=== PATIENT | male | born 1970 | race Caucasian/White ===

== ENCOUNTER 2021-02-23 15:06 | Emergency (ER) | payer SELFPAY ==
--- NOTE | ~2021-02-23 | XR_ITS ---
EXAMINATION: XR CHEST CLINICAL INFORMATION: Rib pain. COMPARISON: None TECHNIQUE: Frontal view of the chest was obtained. FINDINGS: No significant abnormality is noted involving the heart, lungs, mediastinum, bony thorax or soft tissues. XR/XR chest 1V IMPRESSION: Unremarkable examination. Free of pain persist and clinically indicated, consider further evaluation with a dedicated rib series.
--- NOTE | ~2021-02-23 | CT_ITS ---
EXAMINATION: CT ABDOMEN AND PELVIS WITH CONTRAST CLINICAL INFORMATION: Abdominal pain COMPARISON: None. TECHNIQUE: Multidetector volumetric imaging was performed from the superior aspect of the liver through the pubic symphysis following administration of 85 cc of Omnipaque intravenous contrast Sagittal and coronal reformatted images were obtained on the technologist workstation.. This CT examination was performed using dose optimization techniques as appropriate, variously including the following: *Automated exposure control *Adjustment of mA and/or kV according to patient size (this includes techniques or standardized protocols for targeted exams where dose is matched to indication/reason for exam; i.e. extremities or head) *Use of iterative reconstruction technique DLP: 402 mGy-cm FINDINGS: LUNG BASES: Bibasilar dependent markings more suggestive of atelectasis. Atypical infectious etiology would be considered less likely. LIVER, GALLBLADDER, AND BILIARY TREE: The liver is normal in size, shape, and attenuation. No focal hepatic lesion or biliary ductal dilatation is present. The gallbladder is contracted but unremarkable with no evidence of radiopaque gallstones, gallbladder wall thickening, or obvious pericholecystic inflammatory changes. PANCREAS: Unremarkable. SPLEEN: Unremarkable. ADRENAL GLANDS: Unremarkable. KIDNEYS AND URETERS: The kidneys are normal in size, shape, and attenuation. No hydronephrosis, hydroureter, or calculi seen. No perinephric stranding. BLADDER: Bladder is contracted which likely explains the concentric wall thickening. Cystitis could have this appearance however and should be clinically correlated GASTROINTESTINAL TRACT: Few scattered colonic diverticula are noted but there is no colonic wall thickening or pericolonic inflammatory change to suggest diverticulitis. Normal-appearing appendix. Visualized small bowel unremarkable ABDOMINAL WALL: No significant hernia is appreciated. LYMPHOVASCULAR STRUCTURES: No lymphadenopathy. The aorta is unremarkable. PELVIC VISCERA: Unremarkable. OSSEOUS STRUCTURES: Unremarkable. CT/CT abdomen pelvis w con IMPRESSION: Increased basilar lung markings more likely due to atelectasis. Atypical infectious etiology would be considered less likely. Although decompressed there is concentric bladder wall thickening. This may be related to the degree of decompression although cystitis could have this appearance and should be clinically correlated.
[2021-02-23 16:07] VITALS: BP 130/67; PULSE 89; RESP 16; TEMP 36.8; O2SAT 98; BMI 22.8
--- NOTE | 2021-02-23 16:15 | ECG_ITS ---
Test Reason : CHEST PAIN Blood Pressure : / mmHG Vent. Rate : 079 BPM Atrial Rate : 079 BPM P-R Int : 138 ms QRS Dur : 072 ms QT Int : 366 ms P-R-T Axes : 053 053 054 degrees QTc Int : 419 ms Normal sinus rhythm Normal ECG No previous ECGs available Referred By: Generic ED Physician Electronically Signed By:DAMIÁN WILLIAM
--- NOTE | 2021-02-23 17:20 | ED.GENADULT ---
HPI - General Adult General Chief complaint: General Medical <ANUPAM ClayP-BC - Last Filed: 02/23/21 19:38> Stated complaint: back pain,abd pain <GINNY Clay-BC - Last Filed: 02/23/21 19:38> Time Seen by Provider: 02/23/21 17:20 <Anita Larson ASTRONOMY DEPARTMENT CHAIR-BC - Last Filed: 02/23/21 19:38> Source: patient <GINNY Clay-BC - Last Filed: 02/23/21 19:38> Mode of arrival: ambulatory <ANUPAM ClayP-BC - Last Filed: 02/23/21 19:38> Limitations: no limitations <ANUPAM ClayP-BC - Last Filed: 02/23/21 19:38> History of Present Illness HPI narrative: Patient is here today for complaints of abdominal pain that started about 3 days ago. Patient reports that is not related to any food. Patient reports that he does picks up heavy boxes at work. Patient denies any nausea, vomiting, diarrhea, constipation, dysphagia or odynophagia. Patient denies dyspepsia or epigastric pain. Reports that he is moving his bowels normally. Patient reports that when he lays down the pain radiates to his left chest area under his ribs. EKG was done in triage in negative for any acute processes. Patient denies any other symptoms. <ANUPAM ClayP-BC - Last Filed: 02/23/21 19:38> Onset (ago): day(s) (3) <Anita Larson ASTRONOMY DEPARTMENT CHAIR-BC - Last Filed: 02/23/21 19:38> Location: abdomen <Anita Larson ASTRONOMY DEPARTMENT CHAIR-BC - Last Filed: 02/23/21 19:38> Severity: moderate <Anita Platasalomón ASTRONOMY DEPARTMENT CHAIR-BC - Last Filed: 02/23/21 19:38> Severity scale (1-10): 7 <Anita Platasalomón ASTRONOMY DEPARTMENT CHAIR-BC - Last Filed: 02/23/21 19:38> Quality: sharp <Anita Platasalomón ASTRONOMY DEPARTMENT CHAIR-BC - Last Filed: 02/23/21 19:38> Pain Consistency: intermittent <Anita Larson KIRBY - Last Filed: 02/23/21 19:38> Relieving factors: none <Anita Platasalomón KIRBY - Last Filed: 02/23/21 19:38> Related Data Home medications: Previous Rx's Medication Instructions Recorded ketorolac 10 mg tablet 10 mg PO Q6H 5 Days #20 tab 02/23/21 <Anita Plaatsalomón KIRBY - Last Filed: 02/23/21 19:38> Allergies/adverse reactions: Allergies Allergy/AdvReac Type Severity Reaction Status Date / Time No Known Allergies Allergy Verified 02/23/21 16:13 <Anita Platasalomón KIRBY - Last Filed: 02/23/21 19:38> Review of Systems Review of Systems: Constitutional : No Weight loss, No Fever, No Chills, No Night Sweats, No Fatigue, No Malaise ENT/Mouth : No Hearing loss, No Ear Pain, No Nasal Congestion, No Sinus Pain, No Hoarseness, No sore throat, No Rhinorrhea, No Swallowing Difficulty Eyes: No Eye Pain, No Swelling, No Redness, No Foreign Body, No Discharge, No Vision Changes Cardiovascular : No Chest Pain, No SOB, No Dyspnea on Exertion, No Orthopnea, No Edema, No Palpitations Respiratory : No Cough, No Sputum, No Wheezing, No Smoke Exposure, No Dyspnea Gastrointestinal : No Nausea, No Vomiting, No Diarrhea, No Constipation, abdominal Pain, No Hematochezia, No Melena Genitourinary : no irregular bleeding, No Dysuria, No Urinary Frequency, No Hematuria, No Urinary Incontinence, No Urgency, No Flank Pain, No Urinary Flow Changes, No Hesitancy Musculoskeletal : No joint pain, No Myalgias, No Joint Swelling Skin : No Skin Lesions, No rash Neuro : No Weakness, No Numbness, No Paresthesias, No Loss of Consciousness, No Dizziness, No Headache Psych : No Anxiety/Panic, No Depression, No SI/HI/AH/VH, No Social Issues, Heme/Lymph: No Bruising, No Bleeding,No Lymphadenopathy Endocrine : No Polyuria, No Polydipsia, No Temperature Intolerance <Anita Platasalomón KIRBY - Last Filed: 02/23/21 19:38> Yes all other systems are reviewed and are negative <Anita Platasalomón ASTRONOMY DEPARTMENT CHAIR-BC - Last Filed: 02/23/21 19:38> PMFSH Social History Social History: Social History Advance Directives: No Advance Directives Information Provided: Yes <Anita Platasalomón ASTRONOMY DEPARTMENT CHAIR-BC - Last Filed: 02/23/21 19:38> Physical Exam Vital Signs: Vital Signs: Last Vital Signs Temp 98.4 F 02/23/21 20:05 Pulse 76 02/23/21 20:05 Resp 16 02/23/21 20:05 BP 127/69 02/23/21 20:05 Pulse Ox 96 02/23/21 20:05 Body Mass Index 22.8 <Anita Platasalomón ASTRONOMY DEPARTMENT CHAIR-BC - Last Filed: 02/23/21 19:38> Vital Signs: Last Vital Signs Temp 98.4 F 02/23/21 20:05 Pulse 76 02/23/21 20:05 Resp 16 02/23/21 20:05 BP 127/69 02/23/21 20:05 Pulse Ox 96 02/23/21 20:05 Body Mass Index 22.8 <SELENA Nesbitt - Last Filed: 02/23/21 20:50> Const: General: healthy appearing, no acute distress and well developed <Anitareginald Larson ASTRONOMY DEPARTMENT CHAIR-BC - Last Filed: 02/23/21 19:38> Nutritional Appearance: well nourished <Anitareginald Larson ASTRONOMY DEPARTMENT CHAIR-BC - Last Filed: 02/23/21 19:38> Orientation/consciousness: patient oriented x3 <Anitareginald Larson ASTRONOMY DEPARTMENT CHAIR-BC - Last Filed: 02/23/21 19:38> Neck: Neck: Yes normal visual inspection, Yes full ROM and Yes trachea midline <Anitareginald Larson ASTRONOMY DEPARTMENT CHAIR-BC - Last Filed: 02/23/21 19:38> Thyroid: Thyroid normal <Anitareginald Larson ASTRONOMY DEPARTMENT CHAIR-BC - Last Filed: 02/23/21 19:38> Resp: Auscultation: clear to auscultation bilaterally <Anitareginald Larson ASTRONOMY DEPARTMENT CHAIR-BC - Last Filed: 02/23/21 19:38> Cardio: Rate: regular rate <KIRBY Clay - Last Filed: 02/23/21 19:38> Rhythm: regular rhythm <KIRBY Clay - Last Filed: 02/23/21 19:38> GI: Inspection: Yes normal to inspection and No distended <KIRBY Clay - Last Filed: 02/23/21 19:38> Palpation (GI): Soft to palpation, not firm, Tenderness to palpation present (GI) (Left upper quadrant) in the LUQ and No hepatosplenomegaly present <KIRBY Clay - Last Filed: 02/23/21 19:38> Auscultation: normal bowel sounds <KIRBY Clay - Last Filed: 02/23/21 19:38> Skin: General skin exam: elasticity normal, turgor normal and dry skin <KIRBY Clay - Last Filed: 02/23/21 19:38> Neuro: General: patient oriented x3 <KIRBY Clay - Last Filed: 02/23/21 19:38> Course Course Course Narrative: 50-year-old male here today for abdominal discomfort for the last 3 days. Denies nausea, vomiting, diarrhea, constipation, epigastric pain, acid reflux, dysphagia, dyspepsia, odynophagia. Tenderness over left and mid upper quadrant. Chest x-ray normal. Patient reports that when he lays down the pain radiates to his left chest underneath his ribs. He reports that he is moving his bowels normally. Denies postprandial bloating. Will order CT with IV contrast, CBC, CMP. <KIRBY Clay - Last Filed: 02/23/21 19:38> 50-year-old male here today for abdominal discomfort for the last 3 days. Denies nausea, vomiting, diarrhea, constipation, epigastric pain, acid reflux, dysphagia, dyspepsia, odynophagia. Tenderness over left and mid upper quadrant. Chest x-ray normal. Patient reports that when he lays down the pain radiates to his left chest underneath his ribs. He reports that he is moving his bowels normally. Denies postprandial bloating. Will order CT with IV contrast, CBC, CMP. CBC and CMP are within normal limits, urine is negative. COVID is negative. Chest x-ray shows no acute pathology, no bony abnormality. CT with contrast abdomen and pelvis possible atelectasis than bladder wall thickening, which do not correlate with patient's symptoms CT: Increased basilar lung markings more likely due to atelectasis. Atypical infectious etiology would be considered less likely. ? Although decompressed there is concentric bladder wall thickening. This may be related to the degree of decompression although cystitis could have this appearance and should be clinically correlated. Send patient home on ketorolac. Gave return precautions <SELENA Nesbitt - Last Filed: 02/23/21 20:50> Reevaluation(s) Reevaluation #1: Will medication him with Toradol and give him fluids. Awaiting lab results so we can go to CT scan. COVID negative <KIRBY Clay - Last Filed: 02/23/21 19:38> Reevaluation #2: Report given to Danni WALTERS <KIRBY Clay - Last Filed: 02/23/21 19:38> Medical Decision Making Lab Data Result diagrams: : 02/23/21 18:01 02/23/21 18:55 <KIRBY Clay - Last Filed: 02/23/21 19:38> Labs: Lab Results 02/23/21 02/23/21 02/23/21 Range/Units 18:01 18:14 18:45 WBC 11.1 H (4.8-10.8) X10*3/uL RBC 4.53 L (4.60-5.80) X10*6/uL Hgb 14.9 (14.0-18.0) g/dl Hct 42.6 (42-52) % MCV 94.0 (80-98) fL MCH 32.9 (27.0-33.0) pg MCHC 35.0 (31.0-36.0) g/dl RDW 11.8 (11.0-16.0) % Plt Count 397 (160-400) X10*3/uL MPV 9.7 (9.4-12.4) fL Immature Gran % (Auto) 0.3 (0.0-0.4) % Neut % (Auto) 73.6 H (45-73) % Lymph % (Auto) 15.8 L (20-40) % [place] % (Auto) 9.5 (2-11) % Eos % (Auto) 0.4 (0-4) % Baso % (Auto) 0.4 (0-2) % Lymph # (Auto) 1.8 (1.2-4.9) X10*3/uL [place] # (Auto) 1.1 (0.1-1.2) X10*3/uL Eos # (Auto) 0.0 (0.0-0.4) X10*3/uL Baso # (Auto) 0.0 (0.0-0.2) X10*3/uL Abs Immat Gran (auto) 0.03 (0.00-0.03) X10*3/uL Absolute Neuts (auto) 8.2 (2.0-8.3) X10*3/uL Absolute Nucleated RBC 0.000 (0.0-0.012) X10*3/uL Nucleated RBC % (auto) 0.0 (0.0-0.2) /100WBC Sodium (135-145) mmol/L Potassium (3.3-5.1) mmol/L Chloride (96-108) mmol/L Carbon Dioxide (22-29) mmol/L Anion Gap (12-20) BUN (9-16) mg/dL Creatinine (0.5-1.4) mg/dL Estim Creat Clear Calc Estimated GFR Random Glucose (60-115) mg/dL Calcium (8.4-10.2) mg/dL Total Bilirubin (0.0-1.0) mg/dL AST (5-37) U/L ALT (0-40) U/L Alkaline Phosphatase (39-117) U/L Total Protein (6.5-8.0) g/dL Albumin (3.5-5.0) g/dL Urine Color STRAW Urine Appearance CLEAR Urine pH 6.0 (5.0-8.0) Ur Specific [place] 1.010 (1.005-1.025) Urine Protein NEG (NEG-TRACE) MG/DL Urine Glucose (UA) NEG (NEG) MG/DL Urine Ketones NEG (NEG) MG/DL Urine Blood TRACE (NEG) Urine Nitrite NEG (NEG) Ur Leukocyte Esterase NEG (NEG) Urine RBC 0-2 (0) /HPF Urine WBC 0-2 (0-4) /HPF Ur Squamous Epith Cells TRACE /LPF Urine Bacteria NONE /LPF COVID-19 (BUD) Negative (Negative) COVID-19 Clin Com See Note 02/23/21 Range/Units 18:55 WBC (4.8-10.8) X10*3/uL RBC (4.60-5.80) X10*6/uL Hgb (14.0-18.0) g/dl Hct (42-52) % MCV (80-98) fL MCH (27.0-33.0) pg MCHC (31.0-36.0) g/dl RDW (11.0-16.0) % Plt Count (160-400) X10*3/uL MPV (9.4-12.4) fL Immature Gran % (Auto) (0.0-0.4) % Neut % (Auto) (45-73) % Lymph % (Auto) (20-40) % [place] % (Auto) (2-11) % Eos % (Auto) (0-4) % Baso % (Auto) (0-2) % Lymph # (Auto) (1.2-4.9) X10*3/uL [place] # (Auto) (0.1-1.2) X10*3/uL Eos # (Auto) (0.0-0.4) X10*3/uL Baso # (Auto) (0.0-0.2) X10*3/uL Abs Immat Gran (auto) (0.00-0.03) X10*3/uL Absolute Neuts (auto) (2.0-8.3) X10*3/uL Absolute Nucleated RBC (0.0-0.012) X10*3/uL Nucleated RBC % (auto) (0.0-0.2) /100WBC Sodium 140 (135-145) mmol/L Potassium 4.0 (3.3-5.1) mmol/L Chloride 101 (96-108) mmol/L Carbon Dioxide 30 H (22-29) mmol/L Anion Gap 13 (12-20) BUN 7 L (9-16) mg/dL Creatinine 0.80 (0.5-1.4) mg/dL Estim Creat Clear Calc 111.0 Estimated GFR > 60 Random Glucose 114 (60-115) mg/dL Calcium 9.2 (8.4-10.2) mg/dL Total Bilirubin 1.0 (0.0-1.0) mg/dL AST 16 (5-37) U/L ALT 18 (0-40) U/L Alkaline Phosphatase 113 (39-117) U/L Total Protein 6.8 (6.5-8.0) g/dL Albumin 3.9 (3.5-5.0) g/dL Urine Color Urine Appearance Urine pH (5.0-8.0) Ur Specific [place] (1.005-1.025) Urine Protein (NEG-TRACE) MG/DL Urine Glucose (UA) (NEG) MG/DL Urine Ketones (NEG) MG/DL Urine Blood (NEG) Urine Nitrite (NEG) Ur Leukocyte Esterase (NEG) Urine RBC (0) /HPF Urine WBC (0-4) /HPF Ur Squamous Epith Cells /LPF Urine Bacteria /LPF COVID-19 (BUD) (Negative) COVID-19 Clin Com <Anita Larson, ASTRONOMY DEPARTMENT CHAIR-BC - Last Filed: 02/23/21 19:38> Lab Results 02/23/21 02/23/21 02/23/21 Range/Units 18:01 18:14 18:45 WBC 11.1 H (4.8-10.8) X10*3/uL RBC 4.53 L (4.60-5.80) X10*6/uL Hgb 14.9 (14.0-18.0) g/dl Hct 42.6 (42-52) % MCV 94.0 (80-98) fL MCH 32.9 (27.0-33.0) pg MCHC 35.0 (31.0-36.0) g/dl RDW 11.8 (11.0-16.0) % Plt Count 397 (160-400) X10*3/uL MPV 9.7 (9.4-12.4) fL Immature Gran % (Auto) 0.3 (0.0-0.4) % Neut % (Auto) 73.6 H (45-73) % Lymph % (Auto) 15.8 L (20-40) % [place] % (Auto) 9.5 (2-11) % Eos % (Auto) 0.4 (0-4) % Baso % (Auto) 0.4 (0-2) % Lymph # (Auto) 1.8 (1.2-4.9) X10*3/uL [place] # (Auto) 1.1 (0.1-1.2) X10*3/uL Eos # (Auto) 0.0 (0.0-0.4) X10*3/uL Baso # (Auto) 0.0 (0.0-0.2) X10*3/uL Abs Immat Gran (auto) 0.03 (0.00-0.03) X10*3/uL Absolute Neuts (auto) 8.2 (2.0-8.3) X10*3/uL Absolute Nucleated RBC 0.000 (0.0-0.012) X10*3/uL Nucleated RBC % (auto) 0.0 (0.0-0.2) /100WBC Sodium (135-145) mmol/L Potassium (3.3-5.1) mmol/L Chloride (96-108) mmol/L Carbon Dioxide (22-29) mmol/L Anion Gap (12-20) BUN (9-16) mg/dL Creatinine (0.5-1.4) mg/dL Estim Creat Clear Calc Estimated GFR Random Glucose (60-115) mg/dL Calcium (8.4-10.2) mg/dL Total Bilirubin (0.0-1.0) mg/dL AST (5-37) U/L ALT (0-40) U/L Alkaline Phosphatase (39-117) U/L Total Protein (6.5-8.0) g/dL Albumin (3.5-5.0) g/dL Urine Color STRAW Urine Appearance CLEAR Urine pH 6.0 (5.0-8.0) Ur Specific [place] 1.010 (1.005-1.025) Urine Protein NEG (NEG-TRACE) MG/DL Urine Glucose (UA) NEG (NEG) MG/DL Urine Ketones NEG (NEG) MG/DL Urine Blood TRACE (NEG) Urine Nitrite NEG (NEG) Ur Leukocyte Esterase NEG (NEG) Urine RBC 0-2 (0) /HPF Urine WBC 0-2 (0-4) /HPF Ur Squamous Epith Cells TRACE /LPF Urine Bacteria NONE /LPF COVID-19 (BUD) Negative (Negative) COVID-19 Clin Com See Note 02/23/21 Range/Units 18:55 WBC (4.8-10.8) X10*3/uL RBC (4.60-5.80) X10*6/uL Hgb (14.0-18.0) g/dl Hct (42-52) % MCV (80-98) fL MCH (27.0-33.0) pg MCHC (31.0-36.0) g/dl RDW (11.0-16.0) % Plt Count (160-400) X10*3/uL MPV (9.4-12.4) fL Immature Gran % (Auto) (0.0-0.4) % Neut % (Auto) (45-73) % Lymph % (Auto) (20-40) % [place] % (Auto) (2-11) % Eos % (Auto) (0-4) % Baso % (Auto) (0-2) % Lymph # (Auto) (1.2-4.9) X10*3/uL [place] # (Auto) (0.1-1.2) X10*3/uL Eos # (Auto) (0.0-0.4) X10*3/uL Baso # (Auto) (0.0-0.2) X10*3/uL Abs Immat Gran (auto) (0.00-0.03) X10*3/uL Absolute Neuts (auto) (2.0-8.3) X10*3/uL Absolute Nucleated RBC (0.0-0.012) X10*3/uL Nucleated RBC % (auto) (0.0-0.2) /100WBC Sodium 140 (135-145) mmol/L Potassium 4.0 (3.3-5.1) mmol/L Chloride 101 (96-108) mmol/L Carbon Dioxide 30 H (22-29) mmol/L Anion Gap 13 (12-20) BUN 7 L (9-16) mg/dL Creatinine 0.80 (0.5-1.4) mg/dL Estim Creat Clear Calc 111.0 Estimated GFR > 60 Random Glucose 114 (60-115) mg/dL Calcium 9.2 (8.4-10.2) mg/dL Total Bilirubin 1.0 (0.0-1.0) mg/dL AST 16 (5-37) U/L ALT 18 (0-40) U/L Alkaline Phosphatase 113 (39-117) U/L Total Protein 6.8 (6.5-8.0) g/dL Albumin 3.9 (3.5-5.0) g/dL Urine Color Urine Appearance Urine pH (5.0-8.0) Ur Specific [place] (1.005-1.025) Urine Protein (NEG-TRACE) MG/DL Urine Glucose (UA) (NEG) MG/DL Urine Ketones (NEG) MG/DL Urine Blood (NEG) Urine Nitrite (NEG) Ur Leukocyte Esterase (NEG) Urine RBC (0) /HPF Urine WBC (0-4) /HPF Ur Squamous Epith Cells /LPF Urine Bacteria /LPF COVID-19 (BUD) (Negative) COVID-19 Clin Com <SELENA Nesbitt - Last Filed: 02/23/21 20:50> Discharge Plan Discharge Clinical Impression: Strain of abdominal wall Qualifiers: Encounter type: initial encounter Qualified Code(s): S39.011A - Strain of muscle, fascia and tendon of abdomen, initial encounter <KIRBY Clay - Last Filed: 02/23/21 19:38> Patient Disposition: Home, Self-Care <KIRBY Clay - Last Filed: 02/23/21 19:38> Instructions: Core Strengthening Exercises (ED) <KIRBY Clay - Last Filed: 02/23/21 19:38> Additional Instructions: Please fill your prescription for ketorolac intake the next 5 days. Please drink plenty of water with this medication. Please do not take any ibuprofen containing substances, no Motrin, ibuprofen, Aleve, or Excedrin, when you are on this medication. Please rest and return to work on Saturday. Please return to emergency room if you have any new or concerning symptoms. <KIRBY Clay - Last Filed: 02/23/21 19:38> Prescriptions: New ketorolac 10 mg tablet 10 mg PO Q6H 5 Days Qty: 20 RF: 0 <KIRBY Clay - Last Filed: 02/23/21 19:38> Stand Alone Forms: Work/School Release <KIRBY Clay - Last Filed: 02/23/21 19:38>
[2021-02-23 18:07] LABS: MANUAL DIFF FLAG NO
[2021-02-23 18:09] LABS: Basophils Percent Auto 0.4 % (0-2); Eosinophils Percent Auto 0.4 % (0-4); Hematocrit 42.6 % (42-52); Hemoglobin 14.9 g/dl (14.0-18.0); Imm Gran Abs Auto 0.03 X10*3/uL (0.00-0.03); Imm Gran Pct Auto 0.3 % (0.0-0.4); Lymphocytes Absolute Auto 1.8 X10*3/uL (1.2-4.9); Lymphocytes Percent Auto 15.8 % (20-40); Mean Corpuscular Hemoglobin 32.9 pg (27.0-33.0); Mean Platelet Volume 9.7 fL (9.4-12.4); Monocytes Absolute Auto 1.1 X10*3/uL (0.1-1.2); Monocytes Percent Auto 9.5 % (2-11); Neutrophils Absolute Auto 8.2 X10*3/uL (2.0-8.3); Neutrophils Percent Auto 73.6 % (45-73); Platelet Count 397 X10*3/uL (160-400); Red Blood Count 4.53 X10*6/uL (4.60-5.80); Red Cell Distribution Width 11.8 % (11.0-16.0); White Blood Count 11.1 X10*3/uL (4.8-10.8)
[2021-02-23 18:28] LABS: Glucose Urine UA NEG (NEG); Leukocyte Esterase Urine NEG (NEG); Nitrite Urine NEG (NEG); UACC Culture Trigger NO; Urine Blood TRACE (NEG); Urine Ketones NEG (NEG); Urine Protein NEG (NEG-TRACE)
[2021-02-23 18:29] LABS: Appearance Urine CLEAR; Color Urine STRAW
[2021-02-23 18:41] LABS: RBC Urine 0-2 /HPF (0); Squamous Epithelial Cell Urine TRACE /LPF; WBC Urine 0-2 /HPF (0-4)
[2021-02-23 19:05] LABS: COVID-19 Test Negative (Negative)
[2021-02-23] MEDS: 0.9 % Sodium Chloride 1,000 ML 999 ML IV (19:13)
[2021-02-23] MEDS: Ketorolac Tromethamine 15 MG/ML VIAL 30 MG IVPUSH (19:13)
[2021-02-23 19:38] LABS: Alanine Aminotransferase 18 U/L (0-40); Albumin Level 3.9 g/dL (3.5-5.0); Alkaline Phosphatase 113 U/L (39-117); Anion Gap 13 (12-20); Aspartate Amino Transferase 16 U/L (5-37); Blood Urea Nitrogen 7 mg/dL (9-16); Calcium 9.2 mg/dL (8.4-10.2); Carbon Dioxide 30 mmol/L (22-29); Chloride 101 mmol/L (96-108); Estimated Glomerular Filt Rate > 60; Glucose Random 114 mg/dL (60-115); Sodium 140 mmol/L (135-145); Total Protein 6.8 g/dL (6.5-8.0)
[2021-02-23] MEDS: iohexoL 350 MG/ML 100 ML INFUS..BTL IV (19:58)
[2021-02-23 20:05] VITALS: BP 127/69; PULSE 76; RESP 16; TEMP 36.9; O2SAT 96
== END 2021-02-23 21:06 | disposition home or self-care (01) ==
PROVIDERS: Nurse Practitioner Family; Emergency Provider Emergency Medicine
DX: S39.011A Strain of muscle, fascia and tendon of abdomen, initial encounter (principal); X50.0XXA Overexertion from strenuous movement or load, initial encounter; Y93.89 Activity, other specified; Y92.9 Unspecified place or not applicable; Y99.0 Civilian activity done for income or pay; Z20.822 Contact with and (suspected) exposure to COVID-19
CPT/HCPCS: 36415; 71045; 74177; 80053; 81001; 85025; 87635; 93005; 96361; 96374; 99284; J1885; Q9967

== ENCOUNTER 2021-11-28 12:49 | Emergency (ER) | payer SELFPAY ==
[2021-11-28 14:09] VITALS: BP 146/79; PULSE 75; RESP 18; TEMP 36.6; O2SAT 100; BMI 23.0
[2021-11-28 17:16] LABS: MANUAL DIFF FLAG NO
[2021-11-28 17:21] LABS: Basophils Percent Auto 0.9 % (0-2); Eosinophils Absolute Auto 0.1 X10*3/uL (0.0-0.4); Eosinophils Percent Auto 2.2 % (0-4); Hematocrit 44.6 % (42.0-52.0); Hemoglobin 15.5 g/dl (14.0-18.0); Imm Gran Abs Auto 0.01 X10*3/uL (0.00-0.03); Imm Gran Pct Auto 0.2 % (0.0-0.4); Lymphocytes Absolute Auto 1.5 X10*3/uL (1.2-4.9); Lymphocytes Percent Auto 31.5 % (20-40); Mean Corpuscular HGB Conc 34.8 g/dl (31.0-36.0); Mean Corpuscular Hemoglobin 32.3 pg (27.0-33.0); Mean Corpuscular Volume 92.9 fL (80.0-98.0); Mean Platelet Volume 9.3 fL (9.4-12.4); Monocytes Absolute Auto 0.3 X10*3/uL (0.1-1.2); Monocytes Percent Auto 7.2 % (2-11); Neutrophils Absolute Auto 2.7 x10*3/uL (2.0-8.3); Platelet Count 328 X10*3/uL (160-400); Red Cell Distribution Width 12.1 % (11.0-16.0); White Blood Count 4.6 X10*3/uL (4.8-10.8)
[2021-11-28 17:22] LABS: Appearance Urine CLEAR; Color Urine YELLOW; Glucose Urine UA NEG (NEG); Leukocyte Esterase Urine NEG (NEG); Nitrite Urine NEG (NEG); Specific Gravity - Urine >= 1.030 (1.005-1.025); UACC Culture Trigger NO; Urine Blood 1+ (NEG); Urine Ketones NEG (NEG); Urine Protein TRACE MG/DL (NEG-TRACE)
[2021-11-28 17:37] LABS: Mucus Urine TRACE /LPF; RBC Urine 0-2 /HPF (0); Squamous Epithelial Cell Urine TRACE /LPF; WBC Urine 0-2 /HPF (0-4)
[2021-11-28 17:55] LABS: Alanine Aminotransferase 19 U/L (0-40); Albumin Level 4.4 g/dL (3.5-5.0); Alkaline Phosphatase 95 U/L (39-117); Anion Gap 14 (12-20); Aspartate Amino Transferase 28 U/L (5-37); Bilirubin Total 0.6 mg/dL (0.0-1.0); Blood Urea Nitrogen 6 mg/dL (9-16); Calcium 9.3 mg/dL (8.4-10.2); Carbon Dioxide 28 mmol/L (22-29); Chloride 105 mmol/L (96-108); Creatinine Clr Calc Pharmacy 105.2; Estimated Glomerular Filt Rate > 60; Glucose Random 115 mg/dL (60-115); Potassium 3.9 mmol/L (3.3-5.1); Sodium 143 mmol/L (135-145); Total Protein 7.5 g/dL (6.5-8.0)
[2021-11-28 20:10] VITALS: BP 123/73; PULSE 65; TEMP 36.8; O2SAT 99
--- NOTE | 2021-11-28 20:48 | ED_ITS ---
HPI - Male Genitourinary General Chief complaint: Urogenital-Male Stated complaint: blood in urine Time Seen by Provider: 11/28/21 20:12 Source: patient, family and spanish medical interpreter Mode of arrival: ambulatory Limitations: language barrier History of Present Illness HPI Narrative: This is a 51-year-old male who has previously healthy here with intermittent hematuria for 3 months. Patient tells me that he has had 3 episodes of this. Normally it resolved without intervention. Yesterday he noticed some increase in episodes with some lower suprapubic pressure which prompted his visit today. He denies any testicular pain, flank pain, nausea, vomiting, fevers. No urinary urgency, frequency or dysuria. He has clots at times. Related Data Previous Rx's Medication Instructions Recorded ketorolac 10 mg tablet 10 mg PO Q6H 5 Days #20 tab 02/23/21 levofloxacin 750 mg tablet 750 mg PO DAILY 7 Days #7 tab 11/28/21 Allergies Allergy/AdvReac Type Severity Reaction Status Date / Time No Known Allergies Allergy Verified 11/28/21 14:09 Review of Systems Review of Systems: Yes all other systems are reviewed and are negative Constitutional: Constitutional: Reports no additional constitutional complaints, Denies body ache(s), Denies chills, Denies fever(s), Denies headache(s) and Denies weakness Eyes: Eyes: Reports no additional eye complaints and Denies change in vision ENT: Reports system reviewed and no additional complaints, except as documented, Denies dizziness, Denies headache(s), Denies nasal congestion, Denies nasal discharge and Denies neck pain Cardiovascular: Cardiovascular: Reports no additional cardiovascular complaints, Denies chest pain, Denies leg edema and Denies dyspnea Respiratory: Respiratory: Reports no additional respiratory complaints, Denies cough and Denies dyspnea Gastrointestinal: Gastrointestinal: Reports no additional gastrointestinal complaints, Denies abdominal pain, Denies diarrhea, Denies nausea and Denies vomiting Genitourinary: Genitourinary: Reports hematuria, Denies flank pain, Denies testicular pain and Denies urinary incontinence Musculoskeletal: Musculoskeletal: Reports no additional musculoskeletal complaints, Denies back pain, Denies arthralgias, Denies joint swelling, Denies neck pain, Denies numbness and Denies tingling Integumentary/Breasts: Skin/Breast: Reports system reviewed and no additional complaints, except as docu and Denies rash Neurologic: Reports system reviewed and no additional complaints, except as documented, Denies Abnormal speech present, Denies dizziness, Denies headache(s), Denies numbness, Denies tingling and Denies weakness PMFSH Past Medical History Attestation statement: The following information was validated with the patient. Source: old records reviewed and nursing notes reviewed Social History Social History Advance Directives: No Advance Directives Information Provided: No Physical Exam Vital Signs: Vital Signs: Last Vital Signs Temp 98.3 F 11/28/21 20:10 Pulse 65 11/28/21 20:10 Resp 18 11/28/21 14:09 BP 123/73 11/28/21 20:10 Pulse Ox 99 11/28/21 20:10 BMI result Body Mass Index 23.0 Const: General: cooperative, healthy appearing, comfortable and no acute dist ress Orientation/consciousness: patient oriented x3 Limitations: no limitations HEENT: Head: Yes normal to inspection Ears: hearing grossly normal bilaterally General nose exam: Normal external nose present Face and sinus: Yes normal facial exam Mouth: Normal oral and palatal mucosa present Throat: Yes posterior oropharynx normal Eyes: General: appearance normal, both eyes and all related structures Pupils: Equal, round and reactive pupils present Neck: Neck: Yes normal visual inspection Chest: Chest palpation & inspection: normal inspection of the chest Resp: Effort & Inspection: normal respiratory effort Auscultation: clear to auscultation bilaterally Cardio: Rate: regular rate Rhythm: regular rhythm Peripheral pulses: Peripheral pulses 2+ throughout GI: Inspection: Yes normal to inspection Palpation (GI): Soft to palpation and nontender Auscultation: normal bowel sounds : Other: deferred by patient Back/Spine/Pelvis: Thoracic/Lumbar Spine: thoracic and lumbar spine normal to inspection Skin: General skin exam: no rashes or lesions noted Neuro: General: patient oriented x3, no focal motor deficits and normal s ensation to monofilament Cranial nerves: Yes Equal, round and reactive pupils present Cognition (Neuro): normal cognition Speech: No Abnormal speech present Gait exam (Neuro): Normal gait present Motor exam (neuro): 5/5 motor strength present throughout Extrem: General: Yes normal to inspection Course Course Course Narrative: 51-year-old male here with intermittent hematuria over the last 3 months worsened since yesterday with some suprapubic discomfort. No focal abdominal pain. exam deferred. UA shows 1+ blood. It is clear. Labs are unremarkable. Will send STI testing. Patient has low concern. Consider prostatitis (no reports of rectal pain/pressure, nocturia, frequency/urgency). Consider UTI. Consider STI. Low concern for renal colic with no flank pain. Will need urology follow-up outpatient. Will treat prophylactically for antibiotics. Reviewed worrisome signs and symptoms of when to return to the emergency department. Comfortable discharge home. MDM - Male Genitourinary Medical Records Attestation: I reviewed the patient's medical records. Lab Data Attestation: I reviewed the patient's lab results. Result diagrams: 11/28/21 17:10 11/28/21 17:10 Labs: Lab Results 11/28/21 11/28/21 11/28/21 Range/Units 17:10 17:10 17:10 WBC 4.6 L (4.8-10.8) X10*3/uL RBC 4.80 (4.60-5.80) X10*6/uL Hgb 15.5 (14.0-18.0) g/dl Hct 44.6 (42.0-52.0) % MCV 92.9 (80.0-98.0) fL MCH 32.3 (27.0-33.0) pg MCHC 34.8 (31.0-36.0) g/dl RDW 12.1 (11.0-16.0) % Plt Count 328 (160-400) X10*3/uL MPV 9.3 L (9.4-12.4) fL Immature Gran % (Auto) 0.2 (0.0-0.4) % Neut % (Auto) 58.0 (45-73) % Lymph % (Auto) 31.5 (20-40) % Dane % (Auto) 7.2 (2-11) % Eos % (Auto) 2.2 (0-4) % Baso % (Auto) 0.9 (0-2) % Lymph # (Auto) 1.5 (1.2-4.9) X10*3/uL Dane # (Auto) 0.3 (0.1-1.2) X10*3/uL Eos # (Auto) 0.1 (0.0-0.4) X10*3/uL Baso # (Auto) 0.0 (0.0-0.2) X10*3/uL Abs Immat Gran (auto) 0.01 (0.00-0.03) X10*3/uL Absolute Neuts (auto) 2.7 (2.0-8.3) x10*3/uL Absolute Nucleated RBC 0.000 (0.0-0.012) X10*3/uL Nucleated RBC % (auto) 0.0 (0.0-0.2) /100WBC PT 11.0 (9.9-13.0) SEC INR 1.0 (0.9-1.1) Sodium 143 (135-145) mmol/L Potassium 3.9 (3.3-5.1) mmol/L Chloride 105 (96-108) mmol/L Carbon Dioxide 28 (22-29) mmol/L Anion Gap 14 (12-20) BUN 6 L (9-16) mg/dL Creatinine 0.84 (0.5-1.4) mg/dL Estim Creat Clear Calc 105.2 Estimated GFR > 60 Random Glucose 115 (60-115) mg/dL Calcium 9.3 (8.4-10.2) mg/dL Total Bilirubin 0.6 (0.0-1.0) mg/dL AST 28 D (5-37) U/L ALT 19 (0-40) U/L Alkaline Phosphatase 95 (39-117) U/L Total Protein 7.5 (6.5-8.0) g/dL Albumin 4.4 (3.5-5.0) g/dL Urine Color Urine Appearance Urine pH (5.0-8.0) Ur Specific [place] (1.005-1.025) Urine Protein (NEG-TRACE) MG/DL Urine Glucose (UA) (NEG) MG/DL Urine Ketones (NEG) MG/DL Urine Blood (NEG) Urine Nitrite (NEG) Ur Leukocyte Esterase (NEG) Urine RBC (0) /HPF Urine WBC (0-4) /HPF Ur Squamous Epith Cells /LPF Urine Bacteria /LPF Urine Mucus /LPF 11/28/21 Range/Units 17:10 WBC (4.8-10.8) X10*3/uL RBC (4.60-5.80) X10*6/uL Hgb (14.0-18.0) g/dl Hct (42.0-52.0) % MCV (80.0-98.0) fL MCH (27.0-33.0) pg MCHC (31.0-36.0) g/dl RDW (11.0-16.0) % Plt Count (160-400) X10*3/uL MPV (9.4-12.4) fL Immature Gran % (Auto) (0.0-0.4) % Neut % (Auto) (45-73) % Lymph % (Auto) (20-40) % Dane % (Auto) (2-11) % Eos % (Auto) (0-4) % Baso % (Auto) (0-2) % Lymph # (Auto) (1.2-4.9) X10*3/uL Dane # (Auto) (0.1-1.2) X10*3/uL Eos # (Auto) (0.0-0.4) X10*3/uL Baso # (Auto) (0.0-0.2) X10*3/uL Abs Immat Gran (auto) (0.00-0.03) X10*3/uL Absolute Neuts (auto) (2.0-8.3) x10*3/uL Absolute Nucleated RBC (0.0-0.012) X10*3/uL Nucleated RBC % (auto) (0.0-0.2) /100WBC PT (9.9-13.0) SEC INR (0.9-1.1) Sodium (135-145) mmol/L Potassium (3.3-5.1) mmol/L Chloride (96-108) mmol/L Carbon Dioxide (22-29) mmol/L Anion Gap (12-20) BUN (9-16) mg/dL Creatinine (0.5-1.4) mg/dL Estim Creat Clear Calc Estimated GFR Random Glucose (60-115) mg/dL Calcium (8.4-10.2) mg/dL Total Bilirubin (0.0-1.0) mg/dL AST (5-37) U/L ALT (0-40) U/L Alkaline Phosphatase (39-117) U/L Total Protein (6.5-8.0) g/dL Albumin (3.5-5.0) g/dL Urine Color YELLOW Urine Appearance CLEAR Urine pH 6.0 (5.0-8.0) Ur Specific [place] >= 1.030 H (1.005-1.025) Urine Protein TRACE (NEG-TRACE) MG/DL Urine Glucose (UA) NEG (NEG) MG/DL Urine Ketones NEG (NEG) MG/DL Urine Blood 1+ H (NEG) Urine Nitrite NEG (NEG) Ur Leukocyte Esterase NEG (NEG) Urine RBC 0-2 (0) /HPF Urine WBC 0-2 (0-4) /HPF Ur Squamous Epith Cells TRACE /LPF Urine Bacteria NONE /LPF Urine Mucus TRACE /LPF Discharge Plan Discharge Clinical Impression: Urinary tract infection, Hematuria Patient Disposition: Home, Self-Care Instructions: Urinary Tract Infection in Men (DC), Hematuria (ED) Additional Instructions: You need to follow-up with the urologist Increase fluids, rest Take all the antibiotics Prescriptions: New levofloxacin 750 mg tablet 750 mg PO DAILY 7 Days Qty: 7 0RF No Action ketorolac 10 mg tablet 10 mg PO Q6H 5 Days Qty: 20 0RF Referrals: Homero Quispe MD [Physician] - 2 weeks Stand Alone Forms: Work/School Release
[2021-11-28] MEDS: levoFLOXacin 750 MG TABLET PO (21:10)
[2021-11-29 09:14] LABS: CT PCR NOT DETECTED (Not Detect.); NG PCR NOT DETECTED (Not Detect.)
== END 2021-11-28 21:14 | disposition home or self-care (01) ==
PROVIDERS: Nurse Practitioner Family; Emergency Provider Internal Medicine
DX: N39.0 Urinary tract infection, site not specified (principal); R31.9 Hematuria, unspecified; Z79.899 Other long term (current) drug therapy
CPT/HCPCS: 36415; 80053; 81001; 85025; 85610; 87491; 87591; 99283